=== PATIENT | female | born 1935 | race Two or more races ===

== ENCOUNTER 2018-04-15 12:30 | Outpatient (CLI) | payer OTHER | END 2018-04-15 12:34 | disposition home or self-care (01) | LOC: LAB 12:30 | DX: Z80.3 Family history of malignant neoplasm of breast (principal); Z51.81 Encounter for therapeutic drug level monitoring ==

== ENCOUNTER 2018-06-15 14:09 | Outpatient (CLI) | payer OTHER | END 2018-06-15 14:12 | disposition home or self-care (01) | LOC: TOM 14:09 | DX: C50.411 Malignant neoplasm of upper-outer quadrant of right female breast (principal); Z80.3 Family history of malignant neoplasm of breast; D50.8 Other iron deficiency anemias; D51.8 Other vitamin B12 deficiency anemias; I10 Essential (primary) hypertension; Z86.010 Personal history of colon polyps; K57.30 Diverticulosis of large intestine without perforation or abscess without bleeding; E78.5 Hyperlipidemia, unspecified; M17.12 Unilateral primary osteoarthritis, left knee | CPT/HCPCS: 71260; 74177; Q9965 ==

== ENCOUNTER 2019-11-28 10:26 | Outpatient (CLI) | payer OTHER | END 2019-11-28 10:33 | disposition home or self-care (01) | LOC: LAB 10:26 | PROVIDERS: ATTEND Internal Medicine Hematology & Oncology | DX: N20.0 Calculus of kidney (principal) ==

== ENCOUNTER 2019-11-28 12:55 | Outpatient (CLI) | payer OTHER | END 2019-11-28 13:02 | disposition home or self-care (01) | LOC: NUCLEAR 12:55 | PROVIDERS: ATTEND Internal Medicine Hematology & Oncology | DX: M81.0 Age-related osteoporosis without current pathological fracture (principal); Z80.3 Family history of malignant neoplasm of breast; C50.411 Malignant neoplasm of upper-outer quadrant of right female breast; D50.8 Other iron deficiency anemias; D51.8 Other vitamin B12 deficiency anemias; I10 Essential (primary) hypertension; Z86.010 Personal history of colon polyps; K57.30 Diverticulosis of large intestine without perforation or abscess without bleeding; E78.49 Other hyperlipidemia; M17.12 Unilateral primary osteoarthritis, left knee ==

== ENCOUNTER 2019-12-05 08:21 | Outpatient (CLI) | payer OTHER | END 2019-12-05 08:27 | disposition home or self-care (01) | LOC: TOM 08:21 | PROVIDERS: ATTEND Internal Medicine Hematology & Oncology | DX: C50.411 Malignant neoplasm of upper-outer quadrant of right female breast (principal); Z80.3 Family history of malignant neoplasm of breast; D50.8 Other iron deficiency anemias; D51.8 Other vitamin B12 deficiency anemias; I10 Essential (primary) hypertension; Z86.010 Personal history of colon polyps; K57.30 Diverticulosis of large intestine without perforation or abscess without bleeding; E78.49 Other hyperlipidemia; M17.12 Unilateral primary osteoarthritis, left knee | CPT/HCPCS: 71260; 74177; Q9965 ==

== ENCOUNTER 2020-07-03 10:39 | Outpatient (CLI) | payer OTHER | END 2020-07-03 15:06 | disposition home or self-care (01) | LOC: RAD 10:39 | PROVIDERS: ATTEND Internal Medicine Hematology & Oncology | DX: M17.0 Bilateral primary osteoarthritis of knee (principal); D50.8 Other iron deficiency anemias; C50.411 Malignant neoplasm of upper-outer quadrant of right female breast; D51.8 Other vitamin B12 deficiency anemias; I10 Essential (primary) hypertension; Z86.010 Personal history of colon polyps; K57.30 Diverticulosis of large intestine without perforation or abscess without bleeding; E78.49 Other hyperlipidemia; Z80.3 Family history of malignant neoplasm of breast ==

== ENCOUNTER 2020-07-03 10:51 | Outpatient (CLI) | payer OTHER | END 2020-07-03 10:53 | disposition home or self-care (01) | LOC: NUCLEAR 10:51 | PROVIDERS: ATTEND Internal Medicine Hematology & Oncology | DX: I87.2 Venous insufficiency (chronic) (peripheral) (principal); M17.12 Unilateral primary osteoarthritis, left knee; Z80.3 Family history of malignant neoplasm of breast; C50.411 Malignant neoplasm of upper-outer quadrant of right female breast; D50.8 Other iron deficiency anemias; D51.8 Other vitamin B12 deficiency anemias; I10 Essential (primary) hypertension; Z86.010 Personal history of colon polyps; K57.30 Diverticulosis of large intestine without perforation or abscess without bleeding; E78.5 Hyperlipidemia, unspecified; I73.9 Peripheral vascular disease, unspecified ==

== ENCOUNTER 2020-12-11 10:13 | Outpatient (CLI) | payer OTHER | END 2020-12-11 10:18 | disposition home or self-care (01) | LOC: SONOGRAMA 10:13 | PROVIDERS: ATTEND Internal Medicine Hematology & Oncology | DX: D25.2 Subserosal leiomyoma of uterus (principal); Q61.02 Congenital multiple renal cysts; I10 Essential (primary) hypertension ==

== ENCOUNTER 2021-12-04 09:09 | Outpatient (CLI) | payer OTHER | END 2021-12-04 10:00 | disposition home or self-care (01) | LOC: MRI 09:09 | PROVIDERS: ATTEND Internal Medicine | DX: G30.0 Alzheimer's disease with early onset (principal); G30.8 Other Alzheimer's disease | CPT/HCPCS: 70551 ==